=== PATIENT | female | born 1945 | race Caucasian/White ===

== ENCOUNTER 2017-02-24 23:36 | Emergency (ER) | payer SELFPAY ==
[~2017-02-24] VITALS: Ht 160 cm; Wt 61.2 kg
[2017-02-24 23:41] VITALS: Ht 160 cm; Wt 61.2 kg
[2017-02-25 00:32] LABS: BASOPHIL % 0.3 % (0-2); PLATELET COUNT 226 x10^3mcL (130-400)
[2017-02-25] MEDS ORDERED: TRAZODONE50 M1 PO (00:35)
[2017-02-25] MEDS ORDERED: PAROXETINE HCL20 M1 PO (00:35)
[2017-02-25] MEDS ORDERED: CLOPIDOGREL75 M1 PO (00:36)
[2017-02-25] MEDS ORDERED: OMEPRAZOLE40 M1 PO (00:36)
[2017-02-25 00:38] LABS: CALCIUM 8.5 mg/dL (8.5-10.1); CARBON DIOXIDE 28.3 mmol/L (21-32); CHLORIDE SERUM 104 mmol/L (98-107); CREATININE SERUM 1.1 mg/dL (0.6-1.0); GLUCOSE SERUM 112 mg/dL (74-106); POTASSIUM SERUM 3.6 mmol/L (3.5-5.1); SODIUM SERUM 141 mmol/L (136-145)
[2017-02-25 00:40] LABS: RED CELL DISTRIBUTION WIDTH 15.3 % (11.5-14.5)
[2017-02-25 00:43] LABS: ALKALINE PHOSPHATASE 50 U/L (46-116); ALT/SGPT 12 U/L (14-59); AST/SGOT 11 U/L (15-37); BILIRUBIN TOTAL 0.3 mg/dL (0.20-1.00)
[2017-02-25 00:46] LABS: ALBUMIN 3.2 g/dL (3.4-5.0)
[2017-02-25 02:33] VITALS: BP 128/72
== END 2017-02-25 02:33 | disposition home or self-care (01) ==
LOC: ED 23:36
PROVIDERS: Emergency Medicine
DX: R55 Syncope and collapse (principal); K21.9 Gastro-esophageal reflux disease without esophagitis; E78.00 Pure hypercholesterolemia, unspecified; Z88.5 Allergy status to narcotic agent
CPT/HCPCS: J7030; Q0092